=== PATIENT | male | born 1980 | race Caucasian/White ===

== ENCOUNTER → 2022-06-22 | Outpatient (CLI) | payer BC, OTHER ==
[~2022-06-22] MED LIST: AMITRIPTYLINE H10 MG PO; ATORVASTATIN CA20 MG PO; BUSPIRONE HCL5 MG PO; BYSTOLIC10 MG PO; EFFIENT10 MG PO; FISH OIL 1,0001 EAC7 PO; HYDROCODON-ACE1 EAC8 PO; LOSARTAN POTASS25 MG PO; WELLBUTRIN SR150 MG PO; XANAX XR1 MG PO; ZEGERID 20 MG1 EACH PO; ZONEGRAN25 MG PO; metoprolol PO
== END ==
LOC: MRI 12:41
PROVIDERS: ATTEND Internal Medicine
DX: M25.511 Pain in right shoulder (principal)